=== PATIENT | female | born 2000 | race Caucasian/White ===

== ENCOUNTER 2020-12-01 23:24 | Emergency (ER) | payer OTHER ==
[2020-12-02 00:21] LABS: HEMOGLOBIN 14.4 gm/dl (12.3-15.3); RED BLOOD COUNT 4.42 M/UL (4.00-5.10); WHITE BLOOD COUNT 11.1 K/UL (4.5-11.0)
[2020-12-02 03:35] LABS: BUN/CREATININE RATIO 22 (0-10)
[2020-12-02] MEDS ORDERED: ONDANSETRON ODT4 MG SL (04:19)
[2020-12-02] MEDS ORDERED: MACROBID 100 M100 MG PO (04:19)
[2020-12-02] MEDS ORDERED: PROTONIX40 MG PO (04:19)
== END 2020-12-02 04:30 | disposition home or self-care (01) ==
LOC: ER1 23:24
PROVIDERS: Emergency Medicine; Physician Assistant
DX: N39.0 Urinary tract infection, site not specified (principal); K76.0 Fatty (change of) liver, not elsewhere classified; E10.9 Type 1 diabetes mellitus without complications; Z79.899 Other long term (current) drug therapy
CPT/HCPCS: 80053; 81001; 83690; 84703; 85025; 99284; Q9967